=== PATIENT | male | born 1950 | race Caucasian/White ===

== ENCOUNTER 2019-09-13 21:15 | Observation (INO) | payer MEDICARE ==
[~2019-09-13 21:15] MED LIST: Iopamidol-370 76% 500 ML 1 ML ONE
[2019-09-13] MEDS ORDERED: Ondansetron PF 4 MG/2 ML Vial ONE (21:46)
[2019-09-13 21:59] LABS: #Basophils 0.1 thou/uL (0.0-0.2); #Eosinphils 0.1 thou/uL (0.0-0.7); #Lymphocytes 2.5 thou/uL (1.20-3.40); #Neutrophils 6.3 thou/uL (1.40-6.50); %Basophils 0.9 % (0.0-1.0); %Eosinophils 1.1 % (0.0-10.0); %Lymphocytes 25.2 % (21.0-51.0); %Monocytes 9.5 % (0.0-10.0); %Neutrophils 63.3 % (42.0-75.0); Hemoglobin 15.6 g/dL (14.0-18.0); Mean Corpuscular HGB CONC 34.4 g/dL (32.0-36.0); Mean Corpuscular Hemoglobin 31.9 pg (27.0-31.0); Mean Corpuscular Volume 92.5 fL (78.0-98.0); Platelet Count 229 thou/uL (130-400); RBC Distribution Width 11.1 % (11.5-14.5); Red Blood Cell (RBC) Count 4.89 mill/uL (4.70-6.10)
[2019-09-13] MEDS ORDERED: diphenhydrAMINE 50 MG/ML VIAL ONE (22:14)
[2019-09-13] MEDS ORDERED: Acetaminophen 500 MG TAB ONE (22:14)
[2019-09-13] MEDS ORDERED: Metoclopramide HCl 10 MG/2 ML VIAL ONE (22:14)
[2019-09-13 22:20] LABS: ALT (SGPT) 44 U/L (8-55); AST (SGOT) 31 U/L (5-34); Albumin 4.1 g/dL (3.4-4.8); Alkaline Phosphatase 61 U/L (40-110); Anion Gap 17 mmol/L (10-20); BUN (Urea Nitrogen) 18 mg/dL (8.4-25.7); Bilirubin, Total 0.7 mg/dL (0.2-1.2); Calc. Creatinine Clearance 0 mL/min (70-130); Calcium 8.9 mg/dL (7.8-10.44); Carbon Dioxide 18 mmol/L (23-31); Chloride 107 mmol/L (98-107); Estimated GFR-MDRD 80; Globulin 2.6 g/dL (2.4-3.5); Glucose 120 mg/dL (83-110); Potassium 3.1 mmol/L (3.5-5.1); Protein, Total 6.7 g/dL (5.8-8.1); Sodium 139 mmol/L (136-145)
--- NOTE | 2019-09-13 22:54 | CT ---
NONCONTRAST CT HEAD: 09/13/19 HISTORY: Headache and dizziness. Nausea and vomiting. COMPARISON: 06/12/14. FINDINGS: Diminished attenuation is again see in the periventricular white matter which is nonspecific but like ly reflective of chronic small vessel ischemic changes. There is no evidence of an acute cortical inf arction, hemorrhage, mass effect, or midline shift. Mild cerebral volume loss is present. The ventricular system is normal in size, shape and position. The visualized paranasal sinuses and mastoid air cells are clear. No other interval change from prior exam. IMPRESSION: 1. No acute intracranial abnormalities demonstrated. 2. Findings likely reflective of chronic small vessel ischemic changes with mild cerebral volume loss again seen. POS: [facility]
[2019-09-13 23:05] LABS: Bacteria/HPF None Seen HPF (None Seen); Bilirubin Negative (Negative); Blood, Urine Trace (Negative); Clarity Clear (Clear); Glucose, Urine (Dipstick) Normal (Negative); Leukocyte Negative Leu/uL (Negative); Nitrite Negative (Negative); Protein, Urine (Dipstick) Negative (Neg-Trace); Squamous Epithelial 0-3 HPF (0-3); Urobilinogen Normal mg/dL (Less than 2); WBC/HPF 0-3 HPF (0-3)
--- NOTE | 2019-09-14 00:06 | CT ---
CT ABDOMEN AND PELVIS WITH IV CONTRAST: 09/13/19 HISTORY: Abdominal pain and vomiting. Dizziness. COMPARISON: 12/21/15. FINDINGS: There is atelectasis present at each lung base. Vascular calcifications in the limited visualized coronary arteries as well involving the abdominal a horacio and iliac arteries. The liver, spleen, pancreas, bilateral adrenal glands, and right kidney demonstrate a normal CT appea jon. An approximately 2 to 3 mm nonobstructing inferior pole left renal calculus is visualized. There is an approximately 3 mm calculus seen in the region of the left UVJ which may represent a lef t UVJ calculus. There is no significant left hydronephrosis or hydroureter seen. This calcification w as not seen on prior study in 2016. A small to moderate amount of retained fecal material is seen throughout the colon. The appendix is v isualized normal in caliber. Opacified bowel is normal in caliber. Right total hip prosthesis is again seen which does result in streak artifact in the pelvis. Degenerative changes are seen in the spine, greatest involving the lower lumbar spine. Bilateral par s defects are seen at L5 with trace grade I anterolisthesis of L5 on S1. IMPRESSION: 1. Left UVJ calculus measuring 3 mm without left sided hydronephrosis or hydroureter. 2. Nonobstructing left renal calculus. 3. Spondylolisthesis lumbosacral junction with trace grade I anterolisthesis present. 4. Constipation. POS: [facility]
[2019-09-14] MEDS: Acetaminophen 325 MG TAB PO PRN ×2 (02:06→08:14)
[2019-09-14] MEDS ORDERED: Ondansetron PF 4 MG/2 ML Vial IVP PRN (03:00)
[2019-09-14] MEDS ORDERED: Promethazine HCl 12.5 MG in Sodium Chloride 0.9% 50 ML IVPB PRN (03:01)
[2019-09-14] MEDS ORDERED: Ibuprofen 600 MG TAB PO PRN (03:03)
[2019-09-14 05:44] VITALS: BMI 24.4
--- NOTE | 2019-09-14 07:20 | HP ---
PRIMARY CARE PHYSICIAN: None. CHIEF COMPLAINT: Dizziness, nausea, vomiting, and headache. HISTORY OF PRESENT ILLNESS: This is a 69-year-old male with past medical history of polymyalgia rheumatica, on chronic prednisone, who was in his usual state of health at home this afternoon, lying on the couch at 08:15 and speaking on the phone, when he experienced a severe onset of dizziness with a sensation of room spinning around him with severe nausea and vomiting and thereafter, headaches in the bifrontal region without photophobia and rushed to the bathroom. The intractable nausea and vomiting progressed, and the patient also says he noted complaints of abdominal pain and diarrhea at the same time to the point that he ended up on the floor and his called Paramedics. He denies any prior similar complaints. He denies any head trauma. He denies any anticoagulant use. 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 He was administered IV antiemetics en route to the emergency department, but his symptoms seemed to progress upon arrival to the ED. He notes that every time his position was changed, his symptoms would worsen. He notes that the dizziness was extremely severe and he has had a prior bout of vertigo over three decades ago, but symptoms were not similar. In ER, noncontrast head CT was unremarkable. Vital signs were unremarkable. He was administered 50 mg of IV Benadryl, 10 mg of IV Reglan, 4 mg of IV Zofran, and 1 g of oral Tylenol and placed on high-flow oxygen with eventual improvement of breathing symptoms. He was admitted for further observation and placed on telemetry monitoring. A CTA head has been requested for my discussion with the ER physician with results still pending. At bedside, the patient reports feeling moderately improved since hospitalization. His headache lingers and it is probably 2/10 in severity. He denies any further constant dizziness or nausea or vomiting and has tolerated sips of water. He has been ambulatory without any other associated complaints. He notes last week having symptoms attributed to kidney stone that lasted for couple hours and it resolved. In the ER, CT abdomen and pelvis did reveal a nonobstructing left UVJ calculus, 3 mm in size. Cardiac biomarker was unremarkable. Chemistries revealed anion gap metabolic acidosis. PAST MEDICAL HISTORY: Polymyalgia rheumatica. PAST SURGICAL HISTORY: Right hip replacement. SOCIAL HISTORY: The patient lives at home. He denies any tobacco, alcohol, or illicit drug use. He has been ambulatory without assistive devices. ALLERGIES: NONE REPORTED. REVIEW OF SYSTEMS: Pertinent positives as per HPI. Remainder of review of systems is negative. Positive for chronic tenderness. The patient denies any recent illnesses or upper respiratory tract symptoms. HOME MEDICATIONS: Will be reviewed as per admission medication reconciliation. FAMILY HISTORY: Notable for congestive heart failure in patient's mother, who at the age of 93 and prostate cancer in patient's father, who in his 80s. PHYSICAL EXAMINATION: VITAL SIGNS: T-max, afebrile. Pulse 60s to 70s, sinus rhythm. Blood pressure 130s to 140s over 70s to 80s. Oxygen saturation 96% on room air. Respirations 14 to 16, unlabored. GENERAL APPEARANCE: This is an elderly male, who is awake, alert, oriented, quite lucid, not in any obvious distress. HEENT: Normocephalic, atraumatic. No facial asymmetry. Pupils are equally round. Extraocular muscles are intact. No posterior scalp or ear tenderness with palpation. NECK: Supple. Full passive range of motion. No posterior cervical neck tenderness with palpation. CARDIOVASCULAR: S1 and S2. Regular rate and rhythm. No harsh murmurs. No reproducible chest wall tenderness. LUNGS: Bilateral equal air entry on posterior auscultation. Nonlabored respirations. No wheezing or rales. ABDOMEN: Soft, nontender, nondistended. No peritoneal signs. No voluntary guarding. SKIN: Warm to touch without rash, pallor, or abrasion. EXTREMITIES: No edema, cyanosis, or deformities noted. NEUROLOGICAL: No facial asymmetry. Symmetrical smile and symmetrical muscle facial expression. Extraocular muscles are intact. No drift of upper or lower extremities. 2+ hand lead tinner intact. Sensation intact throughout. Gait was not assessed. LABORATORY VALUES: WBC 10.0, H and H 15.6/45.2, and platelets 229. Chemistry; sodium 138, potassium 3.1, chloride 107, bicarb 18, glucose 120, BUN and creatinine 18/0.93, and GFR 80. LFTs unremarkable. Troponin I negative x1. IMAGING DATA: 1. A CT brain without contrast reveals no acute intracranial abnormalities. Findings likely reflecting chronic small vessel ischemic changes with mild cerebral volume loss again seen. 2. A CT abdomen and pelvis with contrast reveals a left 3 mm UVJ calculus without obstruction. Nonobstructing left renal calculus. Spondylolisthesis. Constipation. 3. CTA [place] with contrast, pending results. ASSESSMENT: 1. Acute onset of dizziness associated with nausea and vomiting and headaches of unspecified etiology. The patient will be admitted as observation status and placed on telemetry monitoring. He received acute headache abortive medications in the ER with IV Reglan 10 mg, IV Benadryl 50 mg, IV Zofran 4 mg, and oral Tylenol 1 g with moderate improvement in his symptoms. Evaluation for peripheral versus central vertiginous symptoms must be excluded. Neurology consultation will be obtained. CTA of the head, pending to evaluate for any aneurysms. The patient denies history of chronic migraine headaches, but does note prior episodes with ocular migraines. Note, the symptoms did not feel similar to this. We will continue p.r.n. Tylenol and p.r.n. Motrin for analgesia. We will reserve p.r.n. IV Phenergan for severe headaches. We will defer any further neurodiagnostic imaging to neurologist. 2. Polymyalgia rheumatica. The patient is on chronic prednisone 5 mg daily, which will be continued. 3. Anion gap metabolic acidosis, likely secondary to gastrointestinal losses from nausea and vomiting. The patient's gastrointestinal symptoms resolved. He is tolerating oral intake, and we will defer IV fluids. 4. Hypokalemia. 5. Nonobstructing nephrolithiasis. Deep venous thrombosis prophylaxis: Ambulation. Code status: Full code. Disposition: The patient will be admitted as observation status and placed on telemetry monitoring. Anticipate discharge home in less than 24 hours. The patient seen and examined on 09/14/2019. Job ID: [id number] [facility]
--- NOTE | 2019-09-14 07:28 | CT ---
CT ANGIOGRAM HEAD WITH IV CONTRAST AND 3D RECONSTRUCTIONS: Date: 09/13/2019 HISTORY: Headache. COMPARISON: None. FINDINGS: The left vertebral artery is dominant and patent. The right vertebral artery is very small in caliber , but does demonstrate enhancement. The basilar artery, as well as bilateral posterior cerebral arter ies, are patent. The bilateral middle cerebral and anterior cerebral arteries are patent. The distal bilateral interna l carotid arteries are patent with vascular calcifications in the carotid siphons. No aneurysm is seen within the limitations of the technique of this examination. Mucosal thickening is present in the left maxillary antrum and involving a few ethmoidal air cells. IMPRESSION: 1. No focal stenosis or branch occlusion is seen involving the [place] or vertebrobasilar s ystem. 2. Left vertebral artery is dominant and patent with small caliber visualized distal right vertebral artery. POS: [facility]
[2019-09-14] MEDS ORDERED: Potassium Chloride 20 MEQ TAB PO SCH (09:30)
[2019-09-14 11:41] VITALS: BP 109/73; TEMP 97.9
[2019-09-14 13:48] LABS: Potassium 4.1 mmol/L (3.5-5.1)
--- NOTE | 2019-09-15 03:06 | DIS ---
DATE OF ADMISSION: 09/13/2019 DATE OF DISCHARGE: 09/14/2019 DISCHARGE DIAGNOSES: Acute vertigo secondary to severe migraine, polymyalgia rheumatica, vitamin D deficiency, hyperlipidemia. CONSULTATIONS: None. PROCEDURES: None. BRIEF HISTORY OF PRESENT ILLNESS: This is a 69-year-old male with a past medical history of polymyalgia rheumatica, on chronic prednisone, who had presented to the emergency room with severe headache. The patient states that he initially had noticed a visual aura. The patient states that with his migraines, he only gets auras and does not usually get headache. However, shortly after the aura at 8: 00 pm, he started getting extreme dizziness, after which he experienced severe nausea and a severe intense bifrontal headache. The patient then noticed that every time he changed position he would vomit. He called an ambulance. The patient had received a migraine cocktail of IV Benadryl, IV Reglan, IV Zofran, and oral Tylenol 1 g. The patient's migraine was aborted at 11:00 pm. The patient was admitted for stroke workup. HOSPITAL COURSE: Severe migraine/vertigo/nausea and vomiting: The patient had a CT scan of his head which showed no acute disease. CTA of his brain showed no significant stenosis. The patient had no further recurrence of his migraine. He ambulated around the hallway and experienced no vertigo, dizziness, or nausea. The patient was advised to follow up with his PCP in a week. He was advised to take Motrin p.r.n. for his headaches. If he takes more than 15 tablets of Motrin in a month, then he was advised to follow up with a neurologist to consider treatment for migraine prophylaxis. The patient was also told if he has any visual deficits, to come back to the emergency room given his history of polymyalgia rheumatica, to rule out temporal arteritis. Left kidney stone: Incidentally, the patient did have a CT scan of his abdomen, which showed a left 3 mm UVJ calculus without obstruction. The patient states that he had a kidney stone recently last year for which he underwent a lithotripsy and this is an old finding. He denies any issues with urination, flank pain, or abdominal pain at this time. Hypokalemia: The patient was noted to have a potassium of 3.1. The patient was given replacement and his repeat potassium came up to 4.1. This is most likely secondary to vomiting. Spondylolisthesis:The patient also was noted to have some spondylolisthesis of his lumbar spine, which the patient states is chronic. The patient reports that he has chronic numbness in his toes secondary to this and he takes gabapentin at home. DISCHARGE PHYSICAL EXAMINATION: VITAL SIGNS: Temperature 97.9, heart rate 60, respiratory rate 16, O2 saturation 97% on room air, blood pressure 109/73. GENERAL: The patient is alert, awake, oriented x3. CVS: Regular rate and rhythm with no murmurs, rubs, or gallops. LUNGS: Clear to auscultation bilaterally. ABDOMEN: Positive bowel sounds, soft, nontender, nondistended. EXTREMITIES: No edema. NEURO: Cranial nerves 2 through 12 are intact. The patient is moving all 4 extremities. There is no facial droop. He has intact sensation to his face on V1, V2, and V3 bilaterally. He has intact sensation in all 4 extremities. Reflexes are 2+ in biceps, triceps, and patellar reflexes bilaterally. The patient has 5/5 strength in the upper and lower extremities. PERTINENT LABORATORY DATA: CBC on 09/13: was unremarkable. BMP on 09/13: showed a potassium of 3.1. Repeat potassium on the was 4.1. Glucose was 120. CK 107. LFTs were normal. Troponin I less than 0.010. UA showed 10 ketones, trace blood, 7-10 rbc's. PERTINENT IMAGING DATA: CT brain: no acute disease. The patient has chronic small-vessel ischemic changes. CT of abdomen/pelvis on 09/13: shows a left UVJ calculus measuring 3 mm without left-sided hydronephrosis or hydroureter. Nonobstructing left renal calculus. Spondylosis in the lumbosacral junction with trace grade 1 anterolisthesis present. Constipation. CTA on 09/13/2019: shows no focal stenosis or branch occlusion. DISCHARGE CONDITION: Stable. ACTIVITY: As tolerated. DIET: Regular diet. DISCHARGE MEDICATIONS: 1. Calcium citrate 1000 mg p.o. daily. 2. Vitamin D 1000 units p.o. daily. 3. Gabapentin 800 mg p.o. at bedtime p.r.n. 4. Multivitamin one tablet p.o. daily. 5. Omeprazole 20 mg p.o. daily. 6. Prednisone 5 mg p.o. q.a.m. 7. Crestor 40 mg p.o. at bedtime. 8. Sildenafil 100 mg p.o. p.r.n. Job ID: [id number] [facility]
== END 2019-09-14 14:31 | disposition home or self-care (01) ==
LOC: ERS 21:15 → 2SE 22:57
PROVIDERS: ADMIT Hospitalist; ATTEND Hospitalist
DX: G43.109 Migraine with aura, not intractable, without status migrainosus (principal); R42 Dizziness and giddiness; M35.3 Polymyalgia rheumatica; E55.9 Vitamin D deficiency, unspecified; E78.5 Hyperlipidemia, unspecified; N20.0 Calculus of kidney; E87.6 Hypokalemia; M43.17 Spondylolisthesis, lumbosacral region; E87.2 Acidosis; M47.817 Spondylosis without myelopathy or radiculopathy, lumbosacral region; Z79.52 Long term (current) use of systemic steroids; Z79.899 Other long term (current) drug therapy
CPT/HCPCS: 70450; 70496; 74177; 80053; 82550; 84132; 84484; 85025; 96365; 96375; 99285; G0378 ×3; 36415; 81003; 81015; J1200; J2405; J2765; Q9967

== ENCOUNTER 2021-02-18 09:24 | Outpatient (CLI) | payer MEDICARE ==
[2021-02-18 11:51] LABS: Hemoglobin 15.5 g/dL (13.5-17.5); Mean Corpuscular HGB CONC 33.5 g/dL (32.0-36.0); Mean Corpuscular Hemoglobin 31.6 pg (27.0-33.0); Mean Corpuscular Volume 94.3 fl (81.2-95.1); Mean Platelet Volume 10.5 fl (7.4-10.4); Platelet Count 190 10x3/uL (150-450); RBC Distribution Width 12.3 % (11.5-14.5); Red Blood Cell (RBC) Count 4.91 10x6/uL (4.32-5.72)
[2021-02-18 11:58] LABS: PTT 23.6 sec (22.0-33.0); Prothrombin Time 10.6 sec (9.5-12.1)
[2021-02-18 12:08] LABS: Anion Gap 12 mmol/L (10-20); BUN (Urea Nitrogen) 13 mg/dL (8.4-25.7); Calc. Creatinine Clearance 0 mL/min (70-130); Calcium 9.1 mg/dL (7.8-10.44); Carbon Dioxide 22 mmol/L (23-31); Chloride 109 mmol/L (98-107); Glucose 115 mg/dL (83-110); Sodium 139 mmol/L (136-145)
== END 2021-02-18 09:25 | disposition home or self-care (01) ==
LOC: LABBT 09:24
PROVIDERS: ATTEND Urology
DX: Z01.812 Encounter for preprocedural laboratory examination (principal); N48.89 Other specified disorders of penis
CPT/HCPCS: 80048; 85027; 85610; 85730

== ENCOUNTER 2021-02-21 10:43 | Day surgery (SDC) | payer MEDICARE ==
[2021-02-20 12:11] VITALS: BMI 24.0
[2021-02-21] MEDS ORDERED: Propofol 500 MG/50 ML VIAL ONE (12:05)
[2021-02-21] MEDS ORDERED: Bupivacaine 0.25% HCL 30 ML VIAL ONE (12:43)
[2021-02-21] MEDS ORDERED: Lidocaine 2% PF 5 ML VIAL ONE (12:43)
[2021-02-21] MEDS ORDERED: Bacitracin Zinc Ointment 30 gm TUBE ONE (12:43)
[2021-02-21] MEDS ORDERED: Fentanyl 100 MCG/2 ML VIAL ONE (12:50)
== END 2021-02-21 14:38 | disposition home or self-care (01) ==
LOC: SDC 10:43
PROVIDERS: ATTEND Urology
PROC: 0VBSXZZ Excision of Penis, External Approach (ICD-10-PCS; principal; 2021-02-21)
DX: N48.89 Other specified disorders of penis (principal); Z79.899 Other long term (current) drug therapy
CPT/HCPCS: 88304; J2001; J2704; J3010; S0020

== ENCOUNTER 2025-07-18 10:06 | Inpatient (IN) | payer MEDICARE ==
[2025-07-18 10:54] LABS: #Basophils Less than 0.03 10x3/uL (0.0-0.2); #Eosinophils Less than 0.03 10x3/uL (0.0-0.7); #Monocytes 1.43 10x3/uL (0.11-0.59); #Neutrophils 10.60 10x3/uL (1.40-6.50); %Basophils 0.2 % (0.0-1.0); %Eosinophils 0.1 % (0.0-10.0); %Lymphocytes 3.6 % (21.0-51.0); %Monocytes 11.4 % (0.0-10.0); %Neutrophils 84.1 % (42.0-75.0); Hematocrit 44.3 % (42.0-52.0); Hemoglobin 14.3 g/dL (14.0-18.0); Mean Corpuscular Hemoglobin 29.5 pg (27.0-31.0); Mean Corpuscular Volume 91.5 fL (78.0-98.0); Platelet Count 193 10x3/uL (130-400); Red Blood Cell (RBC) Count 4.84 mill/uL (4.70-6.10); White Blood Cell (WBC) Count 12.58 10x3/uL (4.8-10.8)
[2025-07-18 10:58] LABS: Bacteria/HPF None Seen HPF (None Seen); CAUTI Indications for Culture Pelvic or flank pain; Glucose, Urine (Dipstick) Normal (Negative); Leukocyte Negative Leu/uL (Negative); Protein, Urine (Dipstick) 30 mg/dL (Neg-Trace); RBC/HPF 21-50 HPF (0-3); Specific Gravity, Urine 1.026 (1.002-1.036); WBC/HPF 0-3 HPF (0-3)
[2025-07-18 11:00] LABS: Urine Culture Reflex No No
[2025-07-18 11:26] LABS: ALT (SGPT) 21 U/L (Less than 45); AST (SGOT) 24 U/L (11-34); Albumin 3.7 g/dL (3.1-4.5); Alkaline Phosphatase 59 U/L (40-110); Anion Gap 18 mmol/L (10-20); BUN (Urea Nitrogen) 26 mg/dL (8.4-25.7); Bilirubin, Total 1.5 mg/dL (0.3-1.2); Calc. Creatinine Clearance 0 mL/min (70-130); Calcium 9.8 mg/dL (7.8-10.44); Carbon Dioxide 20 mmol/L (23-31); Chloride 102 mmol/L (98-107); Globulin 3.8 g/dL (2.4-3.5); Glucose 159 mg/dL (83-110); Potassium 4.1 mmol/L (3.5-5.1); Sodium 136 mmol/L (136-145)
[2025-07-18] MEDS ORDERED: Ondansetron PF 4 MG/2 ML Vial ONE (11:44)
[2025-07-18] MEDS ORDERED: Ketorolac Tromethamine 30 MG (1 mL) VIAL ONE (11:44)
[2025-07-18] MEDS ORDERED: cefTRIAXone (ROCEPHIN) 1 GM VIAL ONE (13:16)
[2025-07-18] MEDS ORDERED: Acetaminophen 325 MG TAB PO PRN (14:05)
[2025-07-18 14:43] VITALS: BMI 22.6
[2025-07-18] MEDS: Gabapentin 400 MG CAP PO SCH (20:42)
[2025-07-18] MEDS: Ketorolac Tromethamine 30 MG (1 mL) VIAL IVP PRN (22:03)
[2025-07-19 05:25] LABS: #Basophils Less than 0.03 10x3/uL (0.0-0.2); #Eosinophils 0.10 10x3/uL (0.0-0.7); #Monocytes 1.15 10x3/uL (0.11-0.59); #Neutrophils 8.63 10x3/uL (1.40-6.50); %Basophils 0.1 % (0.0-1.0); %Eosinophils 0.9 % (0.0-10.0); %Lymphocytes 7.8 % (21.0-51.0); %Monocytes 10.7 % (0.0-10.0); %Neutrophils 80.0 % (42.0-75.0); Hematocrit 40.6 % (42.0-52.0); Hemoglobin 13.1 g/dL (14.0-18.0); Mean Corpuscular Hemoglobin 29.5 pg (27.0-31.0); Mean Corpuscular Volume 91.4 fL (78.0-98.0); Platelet Count 192 10x3/uL (130-400); Red Blood Cell (RBC) Count 4.44 mill/uL (4.70-6.10); White Blood Cell (WBC) Count 10.78 10x3/uL (4.8-10.8)
[2025-07-19 05:36] LABS: Anion Gap 13 mmol/L (10-20); BUN (Urea Nitrogen) 31 mg/dL (8.4-25.7); Calc. Creatinine Clearance 35 mL/min (70-130); Calcium 9.4 mg/dL (7.8-10.44); Carbon Dioxide 22 mmol/L (23-31); Chloride 107 mmol/L (98-107); Glucose 117 mg/dL (83-110); Potassium 4.1 mmol/L (3.5-5.1); Sodium 138 mmol/L (136-145)
[2025-07-19] MEDS: Rosuvastatin 20 MG TAB PO SCH (09:53)
[2025-07-19] MEDS: Multivit, Therapeutic 1 TAB PO SCH (09:53)
[2025-07-19] MEDS: Cholecalciferol 1,000 UNITS (25 MCG) TAB PO SCH (09:53)
[2025-07-19] MEDS ORDERED: cefTRIAXone (ROCEPHIN) 2 GM VIAL ONE (11:48)
[2025-07-19] MEDS ORDERED: Rocuronium Bromide 10 MG/ML (10ML VIAL) ONE (12:24)
[2025-07-19] MEDS ORDERED: PROPOFOL 200 MG/20 ML VIAL ONE (12:25)
[2025-07-19] MEDS ORDERED: Ondansetron PF 4 MG/2 ML Vial ONE (12:30)
[2025-07-19] MEDS ORDERED: SUGAMMADEX SODIUM 200 MG/2 ML VIAL ONE (12:33)
[2025-07-19] MEDS ORDERED: fentaNYL PF 100 MCG/2 ML SYRINGE ONE (12:33)
[2025-07-19] MEDS ORDERED: Oxybutynin 5 MG TAB PO PRN (12:58)
[2025-07-19 13:58] VITALS: BP 138/74; TEMP 97.2
[2025-07-19] MEDS: cefTRIAXone\\ROCEPHIN 2 GM in Sodium Chloride 0.9% 100 ML IVPB SCH (14:13)
== END 2025-07-19 18:23 | disposition home or self-care (01) | DRG 660 ==
LOC: ERS 10:06 → ERHOLD 13:26 → SURG B 16:14 → OBSVTOIN 07-19 16:33
PROVIDERS: ADMIT Internal Medicine; ATTEND Internal Medicine
PROC: 0T778DZ Dilation of Left Ureter with Intraluminal Device, Via Natural or Artificial Opening Endoscopic (ICD-10-PCS; principal; 2025-07-19)
PROC: 3E03329 Introduction of Other Anti-infective into Peripheral Vein, Percutaneous Approach (ICD-10-PCS; 2025-07-19)
DX: N20.2 Calculus of kidney with calculus of ureter (principal); E87.20 Acidosis, unspecified; N17.9 Acute kidney failure, unspecified; N40.0 Benign prostatic hyperplasia without lower urinary tract symptoms; K21.9 Gastro-esophageal reflux disease without esophagitis; M35.3 Polymyalgia rheumatica; Z96.641 Presence of right artificial hip joint; R73.9 Hyperglycemia, unspecified; E78.00 Pure hypercholesterolemia, unspecified; Z87.81 Personal history of (healed) traumatic fracture; Z98.890 Other specified postprocedural states; Z79.899 Other long term (current) drug therapy
CPT/HCPCS: 36415; 74176; 74420; 80048; 80053; 81001; 83036; 83605; 85025; 87040; 87086; 96374; 96375; 96376; C1758; C1769; C2617; G0378; J0696; J1100; J1885; J2270; J2405; J2704; J3010; J7030; Q9967

== ENCOUNTER 2025-07-21 12:08 | Outpatient (CLI) | payer MEDICARE ==
[2025-07-21 13:16] LABS: #Basophils Less than 0.03 10x3/uL (0.0-0.2); #Eosinophils 0.10 10x3/uL (0.0-0.7); #Monocytes 0.67 10x3/uL (0.11-0.59); #Neutrophils 6.28 10x3/uL (1.40-6.50); %Basophils 0.1 % (0.0-1.0); %Eosinophils 1.2 % (0.0-10.0); %Lymphocytes 11.9 % (21.0-51.0); %Monocytes 8.3 % (0.0-10.0); %Neutrophils 78.0 % (42.0-75.0); Hematocrit 33.7 % (42.0-52.0); Hemoglobin 10.7 g/dL (14.0-18.0); Mean Corpuscular Hemoglobin 29.4 pg (27.0-31.0); Mean Corpuscular Volume 92.6 fL (78.0-98.0); Platelet Count 161 10x3/uL (130-400); Red Blood Cell (RBC) Count 3.64 mill/uL (4.70-6.10); White Blood Cell (WBC) Count 8.06 10x3/uL (4.8-10.8)
[2025-07-21 13:30] LABS: Anion Gap 12 mmol/L (10-20); BUN (Urea Nitrogen) 18 mg/dL (8.4-25.7); Calc. Creatinine Clearance 0 mL/min (70-130); Calcium 8.5 mg/dL (7.8-10.44); Carbon Dioxide 21 mmol/L (23-31); Chloride 112 mmol/L (98-107); Glucose 119 mg/dL (83-110); Potassium 3.6 mmol/L (3.5-5.1); Sodium 141 mmol/L (136-145)
[2025-07-21 13:33] LABS: INR-International Normal Ratio 1.1; PTT 30.0 sec (22.9-36.1); Prothrombin Time 13.9 sec (12.0-14.7)
== END 2025-07-21 12:09 | disposition home or self-care (01) ==
LOC: LABBT 12:08
PROVIDERS: ATTEND Urology
DX: Z01.818 Encounter for other preprocedural examination (principal); N20.0 Calculus of kidney
CPT/HCPCS: 80048; 85025; 85610; 85730; 93005; 93010

== ENCOUNTER 2025-08-07 06:22 | Day surgery (SDC) | payer MEDICARE ==
[2025-07-21 12:44] VITALS: BMI 23.3
[2025-08-07] MEDS ORDERED: fentaNYL PF 100 MCG/2 ML SYRINGE ONE (08:38)
[2025-08-07] MEDS ORDERED: PROPOFOL 200 MG/20 ML VIAL ONE (08:55)
[2025-08-07] MEDS ORDERED: Rocuronium Bromide 10 MG/ML (10ML VIAL) ONE (08:55)
[2025-08-07] MEDS ORDERED: SUGAMMADEX SODIUM 200 MG/2 ML VIAL ONE (09:01)
[2025-08-07] MEDS ORDERED: Ondansetron PF 4 MG/2 ML Vial ONE (09:01)
[2025-08-16 11:15] LABS: CA Oxalate Dihydrate 10 % (.); CA Oxalate Monohydrate 90 % (.); Color Brown (.); Stone Weight 58 mg (.)
== END 2025-08-07 13:25 | disposition home or self-care (01) ==
LOC: SDC 06:22
PROVIDERS: ATTEND Urology
PROC: BT1FZZZ Fluoroscopy of Left Kidney, Ureter and Bladder (ICD-10-PCS; principal; 2025-08-07)
PROC: 0T778DZ Dilation of Left Ureter with Intraluminal Device, Via Natural or Artificial Opening Endoscopic (ICD-10-PCS; 2025-08-07)
PROC: 0WCR8ZZ Extirpation of Matter from Genitourinary Tract, Via Natural or Artificial Opening Endoscopic (ICD-10-PCS; 2025-08-07)
DX: N20.2 Calculus of kidney with calculus of ureter (principal); N40.0 Benign prostatic hyperplasia without lower urinary tract symptoms; G43.909 Migraine, unspecified, not intractable, without status migrainosus; Z96.641 Presence of right artificial hip joint; Z98.52 Vasectomy status; Z79.899 Other long term (current) drug therapy
CPT/HCPCS: 74018; 74420; 82365; C1747; C1758; C1769 ×2; C2617; C9761; J1100; J2405; J2704; Q9967; 88300